=== PATIENT | male | born 1955 | race Caucasian/White ===

== ENCOUNTER 2017-09-29 22:40 | Emergency (ER) | payer MEDICARE, OTHER ==
[~2017-09-29] VITALS: Ht 167.6 cm; Wt 72.6 kg
[~2017-09-29 22:40] MED LIST: NAPR220 PO
[2017-09-29 23:00] LABS: BASOPHILS ABSOLUTE AUTO 0.09 K/mm3 (0.00-0.23); BASOPHILS PERCENT AUTO 1 % (0-2); EOSINOPHILS PERCENT AUTO 2 % (0-6); Hematocrit 40.2 % (37.0-53.0); Hemoglobin 14.3 g/dL (13.5-17.5); IMMATURE GRAN ABSOLUTE AUTO 0.03 K/mm3 (0.00-0.10); IMMATURE GRAN PERCENT AUTO 0 % (0-1); LYMPHOCYTES ABSOLUTE AUTO 2.16 K/mm3 (0.84-5.20); LYMPHOCYTES PERCENT AUTO 32 % (21-46); MONOCYTES ABSOLUTE AUTO 0.58 K/mm3 (0.16-1.47); MONOCYTES PERCENT AUTO 9 % (4-13); Mean Corpuscular HGB 34.3 pg (26.0-34.0); Mean Corpuscular HGB Conc 35.6 g/dL (31.5-36.5); Mean Corpuscular Volume 96 fL (80-100); Mean Platelet Volume 9.7 fL (9.1-12.4); NEUTROPHILS ABSOLUTE AUTO 3.76 K/mm3 (1.96-9.15); NEUTROPHILS PERCENT AUTO 56 % (41-73); Platelet Count 256 K/mm3 (150-400); RDW Coefficient Variation 12.1 % (11.7-14.2); RDW Standard Deviation 43.2 fL (35.1-46.3); Red Blood Cell Count 4.17 M/mm3 (4.30-5.90); White Blood Cell Count 6.72 K/mm3 (4.00-11.30)
[2017-09-29 23:20] LABS: Alanine Aminotransfer (ALT/SGP 75 U/L (12-78); Albumin, Blood 3.6 g/dL (3.4-5.0); Albumin/Globulin Ratio 0.8 (0.8-1.8); Alk Phos 68 U/L (50-136); Anion Gap 14 mmol/L (6-16); Aspartate Aminotrans (AST/SGOT 96 U/L (12-37); Bilirubin, Total 0.5 mg/dL (0.1-1.0); Blood Urea Nitrogen 5 mg/dL (8-24); Bun/Creatinine Ratio 7.8 (12.0-20.0); CO2, Blood 22 mmol/L (21-32); Chloride, Blood 102 mmol/L (98-108); Creatinine, Blood 0.64 mg/dL (0.60-1.20); Globulin, Blood 4.4 g/dL (2.2-4.0); Glomerular Filtration Rate >60 (60-); Glucose, Blood 105 mg/dL (70-99); Sodium, Blood 138 mmol/L (136-145); Troponin I <0.015 ng/mL (0.000-0.040)
[2017-09-30] MEDS ORDERED: LEVFLO500 PO (01:33)
[2018-06-04] MEDS ORDERED: Bactrim Ds Tab1 EACH PO (14:18)
[2018-06-04] MEDS ORDERED: CEPH500 PO (14:18)
== END 2017-09-30 01:58 | disposition home or self-care (01) ==
LOC: ER 22:40
PROVIDERS: Emergency Medicine
DX: J18.9 Pneumonia, unspecified organism (principal); I10 Essential (primary) hypertension; Z87.891 Personal history of nicotine dependence
CPT/HCPCS: 36415; 71046; 71260; 80053; 83880; 84484; 85025; 85379; 93005; 93010; 96360; 96361; 99284; J7030; Q9967

== ENCOUNTER 2017-11-12 19:08 | Emergency (ER) | payer MEDICARE, OTHER ==
[~2017-11-12] VITALS: Ht 167.6 cm; Wt 81.7 kg
[~2017-11-12 19:08] MED LIST changes: +LEVFLO500 PO
[2017-11-12] MEDS ORDERED: Bactrim Ds Tab1 EACH PO (20:34)
[2017-11-12 21:31] LABS: Appearance, Synovial Fluid Viscous (Clear)
[2017-11-12 21:54] LABS: Lymphs, Synovial Fluid 1 % (0-15); Neutrophils, Synovial Fluid 99 % (0-24)
[2017-11-12 21:55] LABS: Color, Synovial Fluid Red (None-P Yel)
[2018-06-04] MEDS ORDERED: CEPH500 PO (14:18)
[2018-06-04] MEDS ORDERED: Bactrim Ds Tab1 EACH PO (14:18)
== END 2017-11-12 20:47 | disposition home or self-care (01) ==
LOC: ER 19:08
PROVIDERS: Emergency Medicine
DX: M70.31 Other bursitis of elbow, right elbow (principal); I10 Essential (primary) hypertension; Z87.891 Personal history of nicotine dependence
CPT/HCPCS: 10160; 73080; 87070; 87077; 87147; 87186; 89051; 99283

== ENCOUNTER 2018-01-19 09:12 | Emergency (ER) | payer MEDICARE ==
[~2018-01-19] VITALS: Ht 165.1 cm; Wt 72.6 kg
[~2018-01-19 09:12] MED LIST changes: +Bactrim Ds Tab1 EACH PO
[2018-01-19] MEDS ORDERED: Prinivil5 MG PO (10:07)
== END 2018-01-19 10:27 | disposition home or self-care (01) ==
LOC: ER 09:12
DX: S62.616A Displaced fracture of proximal phalanx of right little finger, initial encounter for closed fracture (principal); I10 Essential (primary) hypertension; W19.XXXA Unspecified fall, initial encounter
CPT/HCPCS: 73140

== ENCOUNTER → 2018-10-03 | Outpatient (CLI) | payer MEDICARE ==
[~2018-10-03] MED LIST changes: +CEPH500 PO; +Prinivil5 MG PO
[2018-10-03 11:27] LABS: BASOPHILS ABSOLUTE AUTO 0.04 K/mm3 (0.00-0.23); BASOPHILS PERCENT AUTO 0 % (0-2); EOSINOPHILS ABSOLUTE AUTO 0.01 K/mm3 (0.00-0.68); EOSINOPHILS PERCENT AUTO 0 % (0-6); Hematocrit 43.4 % (37.0-53.0); Hemoglobin 15.8 g/dL (13.5-17.5); IMMATURE GRAN ABSOLUTE AUTO 0.05 K/mm3 (0.00-0.10); IMMATURE GRAN PERCENT AUTO 1 % (0-1); LYMPHOCYTES ABSOLUTE AUTO 0.92 K/mm3 (0.84-5.20); LYMPHOCYTES PERCENT AUTO 9 % (21-46); MONOCYTES ABSOLUTE AUTO 1.27 K/mm3 (0.16-1.47); MONOCYTES PERCENT AUTO 12 % (4-13); Mean Corpuscular HGB 33.5 pg (26.0-34.0); Mean Corpuscular HGB Conc 36.4 g/dL (31.5-36.5); Mean Corpuscular Volume 92 fL (80-100); Mean Platelet Volume 10.4 fL (9.1-12.4); NEUTROPHILS ABSOLUTE AUTO 8.28 K/mm3 (1.96-9.15); NEUTROPHILS PERCENT AUTO 78 % (41-73); Platelet Count 220 K/mm3 (150-400); RDW Coefficient Variation 11.7 % (11.7-14.2); RDW Standard Deviation 39.6 fL (35.1-46.3); Red Blood Cell Count 4.72 M/mm3 (4.30-5.90); White Blood Cell Count 10.57 K/mm3 (4.00-11.30)
[2018-10-03 11:45] LABS: Alanine Aminotransfer (ALT/SGP 26 U/L (12-78); Albumin, Blood 3.4 g/dL (3.4-5.0); Albumin/Globulin Ratio 0.6 (0.8-1.8); Alk Phos 81 U/L (40-126); Anion Gap 15 mmol/L (6-16); Aspartate Aminotrans (AST/SGOT 30 U/L (12-37); Bilirubin, Total 1.4 mg/dL (0.1-1.0); Blood Urea Nitrogen 13 mg/dL (8-24); Bun/Creatinine Ratio 12.7 (12.0-20.0); CO2, Blood 22 mmol/L (21-32); Calcium, Blood 8.6 mg/dL (8.5-10.1); Chloride, Blood 94 mmol/L (98-108); Creatinine, Blood 1.02 mg/dL (0.60-1.20); Globulin, Blood 5.8 g/dL (2.2-4.0); Glomerular Filtration Rate >60 (60-); Glucose, Blood 113 mg/dL (70-99); Potassium, Blood 3.3 mmol/L (3.5-5.5); Sodium, Blood 131 mmol/L (136-145); Thyroid Stimulating Hormone 4.455 uIU/mL (0.360-4.800); Total Protein, Blood 9.2 g/dL (6.4-8.2)
[2018-10-03 13:04] LABS: Magnesium, Blood 1.6 mg/dL (1.6-2.4)
[2018-10-04 07:15] LABS: HIV SCREEN 4TH GENERATION WRFX Non Reactive (Non Reactive)
[2018-10-05 15:07] LABS: A/G RATIO 0.8 (0.7-1.7); ALBUMIN 3.6 g/dL (2.9-4.4); ALPHA-1-GLOBULIN 0.3 g/dL (0.0-0.4); ALPHA-2-GLOBULIN 0.8 g/dL (0.4-1.0); BETA GLOBULIN 1.1 g/dL (0.7-1.3); GAMMA GLOBULIN 2.6 g/dL (0.4-1.8); GLOBULIN, TOTAL 4.8 g/dL (2.2-3.9); M-SPIKE Not Observed g/dL (Not Observed); PROTEIN, TOTAL, SERUM 8.4 g/dL (6.0-8.5)
== END | disposition home or self-care (01) ==
LOC: LAB SHORT 11:16 → LAB EV 11:16
PROVIDERS: Physician Assistant Medical
DX: R53.83 Other fatigue (principal); R21 Rash and other nonspecific skin eruption; R25.1 Tremor, unspecified; E88.09 Other disorders of plasma-protein metabolism, not elsewhere classified
CPT/HCPCS: 80053; 83735; 84165; 84443; 85025; 86335; 87389

== ENCOUNTER → 2018-10-03 | Outpatient (CLI) | payer MEDICARE | END | disposition home or self-care (01) | LOC: LAB SHORT 10:42 → LAB EV 10:42 | DX: R21 Rash and other nonspecific skin eruption (principal) | CPT/HCPCS: 87070; 87077; 87147; 87186; 87205 ==

== ENCOUNTER 2019-02-04 18:26 | Emergency (ER) | payer MEDICARE ==
[~2019-02-04] VITALS: Ht 167.6 cm; Wt 70.8 kg
== END 2019-02-04 19:45 | disposition home or self-care (01) ==
LOC: ER 18:26
DX: Z53.21 Procedure and treatment not carried out due to patient leaving prior to being seen by health care provider (principal); R42 Dizziness and giddiness; R53.1 Weakness

== ENCOUNTER 2019-03-07 17:30 | Emergency (ER) | payer MEDICARE ==
[~2019-03-07] VITALS: Ht 167.6 cm; Wt 72.6 kg
== END 2019-03-07 19:02 | disposition home or self-care (01) ==
LOC: ER 17:30
DX: S00.01XA Abrasion of scalp, initial encounter (principal); I10 Essential (primary) hypertension; W18.30XA Fall on same level, unspecified, initial encounter
CPT/HCPCS: 70450; 99284-25